=== PATIENT | female | born 1985 | race American Indian/Alaskan Native ===

== ENCOUNTER 2020-06-24 07:04 | Emergency (ER) | payer SELFPAY | END 2020-06-24 07:05 | disposition left against medical advice (07) | LOC: ED 07:04 | DX: Z53.21 Procedure and treatment not carried out due to patient leaving prior to being seen by health care provider (principal) ==

== ENCOUNTER 2021-03-13 11:16 | Emergency (ER) | payer SELFPAY ==
[2021-03-13 12:29] VITALS: BP 132/81
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
[2021-03-13 14:12] LABS: Alanine Aminotransferase 23 units/L (7-56); Albumin 4.1 g/dL (3.9-5); Blood Urea Nitrogen 10 mg/dL (7-17); Calcium 9.4 mg/dL (8.4-10.2); Hemolysis Index 35
[2021-03-13 14:15] LABS: Basophils % (Auto) 0.4 % (0.0-1.8); Eosinophils # (Auto) 0.1 K/mm3 (0.0-0.4); Eosinophils % (Auto) 0.9 % (0.0-4.3); Hematocrit 41.4 % (30.3-42.9); Hemoglobin 13.6 gm/dl (10.1-14.3); Lymphocytes # (Auto) 2.1 K/mm3 (1.2-5.4); Lymphocytes % (Auto) 37.4 % (13.4-35.0); Mean Corpuscular HGB Conc 33 % (30-34); Mean Corpuscular Volume 87 fl (79-97); Monocytes # (Auto) 0.3 K/mm3 (0.0-0.8); Platelet Count 265 K/mm3 (140-440); Red Blood Count 4.75 M/mm3 (3.65-5.03)
[2021-03-13 14:20] LABS: BUN/Creatinine Ratio 14
[2021-03-13 14:32] LABS: Bilirubin,Urine NEG (Negative); Blood,Urine NEG (Negative); Color,Urine Straw (Yellow); Mucus,Urine FEW /HPF; Protein,Urine <15 mg/dL mg/dL (Negative); Urobilinogen,Urine < 2.0 mg/dL (<2.0)
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
== END 2021-03-13 15:27 | disposition home or self-care (01) ==
LOC: ED 11:16
DX: M54.50 Low back pain, unspecified (principal); R10.30 Lower abdominal pain, unspecified; W01.0XXA Fall on same level from slipping, tripping and stumbling without subsequent striking against object, initial encounter; Y93.89 Activity, other specified; Y92.89 Other specified places as the place of occurrence of the external cause; Y99.8 Other external cause status
CPT/HCPCS: 36415; 72100; 80053; 81001; 83690; 84702; 85025; 99283

== ENCOUNTER 2021-09-27 23:28 | Emergency (ER) ==
[2021-09-27 23:32] VITALS: BP 138/86
== END 2021-09-28 01:00 | disposition left against medical advice (07) ==
LOC: ED 23:28
DX: Z04.1 Encounter for examination and observation following transport accident (principal); Z53.21 Procedure and treatment not carried out due to patient leaving prior to being seen by health care provider; V87.7XXA Person injured in collision between other specified motor vehicles (traffic), initial encounter; Y93.89 Activity, other specified; Y92.488 Other paved roadways as the place of occurrence of the external cause; Y99.8 Other external cause status